=== PATIENT | male | born 1945 | race Hispanic/Latino ===

== ENCOUNTER 2017-10-10 18:05 | Emergency (ER) | payer OTHER ==
[2017-10-10] MEDS ORDERED: DEXAMETHASONE 10 MG/ML VIAL ONE (18:48)
[2017-10-10] MEDS ORDERED: DIPHENHYDRAMINE 50 MG/ML VIAL ONE (18:49)
[2017-10-10] MEDS ORDERED: FAMOTIDINE 20 MG/2 ML VIAL IV ONE (18:49)
--- NOTE | 2017-10-10 20:18 | EDPHYS ---
Physician Documentation [facility] Name: Javier Ren Age: 71 yrs Sex: Male : 1945 Arrival Date: 10/10/2017 Time: 18:08 Bed 25 Private MD: ED Physician Leonel Mitchell HPI: 10/10 18:31 This 71 yrs old Male presents to ER via Ambulatory with complaints of Bee pm1 Sting. 18:31 The patient's rash thought to be caused by insect bites. The rash is located on the pm1 face and left hand. The rash can be described as raised. Onset: The symptoms/episode began/occurred 2 hour(s) ago. Associated signs and symptoms: Pertinent negatives: difficulty breathing, swelling of lips, swelling of throat, swelling of tongue, wheezing, SOB, chest pain, sore throat. Severity of symptoms: in the emergency department the symptoms are unchanged. Treatment given at home: None. The patient has not experienced similar symptoms in the past. Patient was mowing the lawn and was stung by multiple bees in the face, scalp, and left hand. 18:44 Tetanus shot last year per patient. pm1 Historical: - Allergies: 18:12 No Known Allergies; lk1 - PMHx: 18:12 Hypertension; High Cholesterol; COPD; lk1 - PSHx: 18:12 None; lk1 - Immunization history:: Adult Immunizations up to date. - Social history:: Smoking status: Patient uses tobacco products, smokes one pack cigarettes per day. ROS: 18:31 Constitutional: Negative for fever, chills, and weight loss, Eyes: Negative for injury, pm1 pain, redness, and discharge, ENT: Negative for injury, pain, and discharge, Neck: Negative for injury, pain, and swelling, Cardiovascular: Negative for chest pain, palpitations, and edema, Respiratory: Negative for shortness of breath, cough, wheezing, and pleuritic chest pain, Abdomen/GI: Negative for abdominal pain, nausea, vomiting, diarrhea, and constipation, Back: Negative for injury and pain, MS/Extremity: Negative for injury and deformity. 18:31 Neuro: Negative for headache, weakness, numbness, tingling, and seizure. 18:31 Skin: Positive for swelling, of the left hand and face. Exam: 18:31 Constitutional: This is a well developed, well nourished patient who is awake, alert, pm1 and in no acute distress. 18:31 Eyes: Pupils equal round and reactive to light, extra-ocular motions intact. Lids and lashes normal. Conjunctiva and sclera are non-icteric and not injected. Cornea within normal limits. Periorbital areas with no swelling, redness, or edema. ENT: Nares patent. No nasal discharge, no septal abnormalities noted. Tympanic membranes are normal and external auditory canals are clear. Oropharynx with no redness, swelling, or masses, exudates, or evidence of obstruction, uvula midline. Mucous membranes moist. Neck: Trachea midline, no thyromegaly or masses palpated, and no cervical lymphadenopathy. Supple, full range of motion without nuchal rigidity, or vertebral point tenderness. No Meningismus. Chest/axilla: Normal chest wall appearance and motion. Nontender with no deformity. No lesions are appreciated. Cardiovascular: Regular rate and rhythm with a normal S1 and S2. No gallops, murmurs, or rubs. Normal PMI, no JVD. No pulse deficits. Respiratory: Lungs have equal breath sounds bilaterally, clear to auscultation and percussion. No rales, rhonchi or wheezes noted. No increased work of breathing, no retractions or nasal flaring. Abdomen/GI: Soft, non-tender, with normal bowel sounds. No distension or tympany. No guarding or rebound. No evidence of tenderness throughout. Back: No spinal tenderness. No costovertebral tenderness. Full range of motion. 18:31 Head/face: Noted is swelling, that is moderate, of the right cheek, left cheek and left eye. 18:31 Skin: swelling to dorsal aspect of left hand. Two bee stingers removed from left cheek and left hand. 18:31 Neuro: Orientation: is normal, Mentation: is normal, Motor: is normal, moves all fours, Gait: is steady, at a normal pace, without difficulty. Vital Signs: 18:13 BP 132 / 74; Pulse 99; Resp 18; Temp 97.5(TE); Pulse Ox 95% on R/A; Weight 64.41 kg lk1 (R); Height 5 ft. 2 in. (157.48 cm) (R); Pain 6/10; 19:22 BP 121 / 68; Pulse 64; Resp 18; Pulse Ox 100% ; tl3 20:30 BP 126 / 78; Pulse 67; Resp 16; Pulse Ox 98% on R/A; tl3 18:13 Body Mass Index 25.97 (64.41 kg, 157.48 cm) lk1 MDM: 18:16 Patient medically screened. pm1 20:15 Data reviewed: vital signs. Data interpreted: Pulse oximetry: on room air is 100 %. pm1 Interpretation: normal. Counseling: I had a detailed discussion with the patient and/or guardian regarding: the historical points, exam findings, and any diagnostic results supporting the discharge/admit diagnosis, the need for outpatient follow up, to return to the emergency department if symptoms worsen or persist or if there are any questions or concerns that arise at home. 10/10 18:21 Order name: IV Saline Lock; Complete Time: 18:26 pm1 Administered Medications: 18:38 Drug: Benadryl 25 mg Route: IVP; Infused Over: 3 mins; Site: right antecubital; tl3 20:31 Follow up: Response: No adverse reaction tl3 18:38 Drug: Decadron - Dexamethasone 10 mg Route: IVP; Site: right antecubital; tl3 20:31 Follow up: Response: No adverse reaction tl3 18:39 Drug: Pepcid 20 mg Route: IVP; Infused Over: 3 mins; Site: right antecubital; tl3 20:31 Follow up: Response: No adverse reaction tl3 Disposition: 10/11 16:43 Co-signature as Attending Physician, Leonel Mitchell MD available for consultation at ps1 all times. . Disposition: 10/10/17 20:18 Discharged to Home. Impression: Hymenoptera - sting. - Condition is Stable. - Discharge Instructions: Bee, Wasp, or Hornet Sting. - Prescriptions for Benadryl 25 mg Oral Capsule - take 1 capsule by ORAL route every 6 hours As needed; 30 tablet. Pepcid 20 mg Oral Tablet - take 1 tablet by ORAL route every 12 hours for 5 days; 10 tablet. Prednisone 20 mg Oral Tablet - take 3 tablet by ORAL route once daily for 5 days; 15 tablet. - Medication Reconciliation Form, Thank You Letter, Antibiotic Education, Prescription Opioid Use form. - Follow up: Emergency Department; When: As needed; Reason: Worsening of condition. Follow up: Private Physician; When: 2 - 3 days; Reason: Recheck today's complaints, Continuance of care, Re-evaluation by your physician. - Problem is new. - Symptoms have improved. Signatures: Bertha Pope, RN RN lk1 Kike Gonzalez, [facility] TELEVISION RENTAL CLERK pm1 Leonel Mitchell MD MD ps1 Brittany Morley, RN RN tl3
--- NOTE | 2017-10-10 20:18 | ER ---
Nurse's Notes [facility] Name: Javier Ren Age: 71 yrs Sex: Male : 1945 Arrival Date: 10/10/2017 Time: 18:08 Bed 25 Private MD: Diagnosis: Hymenoptera - sting Presentation: 10/10 18:11 Presenting complaint: Patient states: I got stung by some bees around 4pm today, they lk1 were just following me. Transition of care: patient was not received from another setting of care. Onset of symptoms was October 10, 2017 at 16:00. Care prior to arrival: None. 18:11 Method Of Arrival: Ambulatory lk1 18:11 Acuity: FRANCISCO JAVIER 3 lk1 Triage Assessment: 18:12 General: Appears uncomfortable, Behavior is calm, cooperative, appropriate for age. lk1 Pain: Complains of pain in face and left hand Pain currently is 6 out of 10 on a pain scale. EENT: Lid(s) swelling in bilateral eyes. Respiratory: Airway is patent Respiratory effort is even, unlabored, Respiratory pattern is regular, symmetrical. Historical: - Allergies: 18:12 No Known Allergies; lk1 - PMHx: 18:12 Hypertension; High Cholesterol; COPD; lk1 - PSHx: 18:12 None; lk1 - Immunization history:: Adult Immunizations up to date. - Social history:: Smoking status: Patient uses tobacco products, smokes one pack cigarettes per day. Screenin:58 Abuse screen: Denies threats or abuse. Nutritional screening: No deficits noted. tl3 Tuberculosis screening: No symptoms or risk factors identified. Fall Risk None identified. Assessment: 18:20 General: Appears uncomfortable, well groomed, well developed, well nourished, Behavior tl3 is calm, cooperative, appropriate for age. Pain: Pain began 2 hours ago. multiple stings to face and hand, swelling to face and left hand. Neuro: Level of Consciousness is awake, alert, obeys commands, Oriented to person, place, time, situation, Appropriate for age. Cardiovascular: Heart tones S1 S2 present. Respiratory: Airway is patent Trachea deviated to right Breath sounds are clear bilaterally. GI: No signs and/or symptoms were reported involving the gastrointestinal system. : No signs and/or symptoms were reported regarding the genitourinary system. EENT: No signs and/or symptoms were reported regarding the EENT system. 19:22 Reassessment: Patient and/or family updated on plan of care and expected duration. Pain tl3 level reassessed. Patient is alert, oriented x 3, equal unlabored respirations, skin warm/dry/pink. swelling and redness reduced since arrival, pt in NAD. 20:30 Reassessment: Patient and/or family updated on plan of care and expected duration. Pain tl3 level reassessed. Patient is alert, oriented x 3, equal unlabored respirations, skin warm/dry/pink. Vital Signs: 18:13 BP 132 / 74; Pulse 99; Resp 18; Temp 97.5(TE); Pulse Ox 95% on R/A; Weight 64.41 kg lk1 (R); Height 5 ft. 2 in. (157.48 cm) (R); Pain 6/10; 19:22 BP 121 / 68; Pulse 64; Resp 18; Pulse Ox 100% ; tl3 20:30 BP 126 / 78; Pulse 67; Resp 16; Pulse Ox 98% on R/A; tl3 18:13 Body Mass Index 25.97 (64.41 kg, 157.48 cm) lk1 ED Course: 18:08 Patient arrived in ED. as 18:11 Triage completed. lk1 18:15 Arm band placed on right wrist. lk1 18:16 Kike Gonzalez NP is PHCP. pm1 18:16 Leonel Mitchell MD is Attending Physician. pm1 18:17 Brittany Morley, JAGJIT is Primary Nurse. tl3 18:25 Inserted saline lock: in right antecubital area, using aseptic technique. tl3 18:40 Patient has correct armband on for positive identification. Placed in gown. Bed in low tl3 position. Call light in reach. Side rails up X 1. Adult w/ patient. 18:40 No provider procedures requiring assistance completed. tl3 21:00 IV discontinued, intact, bleeding controlled, No redness/swelling at site. Pressure tl3 dressing applied. Administered Medications: 18:38 Drug: Benadryl 25 mg Route: IVP; Infused Over: 3 mins; Site: right antecubital; tl3 20:31 Follow up: Response: No adverse reaction tl3 18:38 Drug: Decadron - Dexamethasone 10 mg Route: IVP; Site: right antecubital; tl3 20:31 Follow up: Response: No adverse reaction tl3 18:39 Drug: Pepcid 20 mg Route: IVP; Infused Over: 3 mins; Site: right antecubital; tl3 20:31 Follow up: Response: No adverse reaction tl3 Outcome: 20:18 Discharge ordered by . pm1 20:41 Patient left the ED. tl3 21:00 Condition: stable tl3 21:00 Instructed on discharge instructions, follow up and referral plans. medication usage, Demonstrated understanding of instructions, follow-up care, medications, Prescriptions given X 2. 23:59 Discharged to home tl3 Signatures: Shea Ren Leah, RN RN lk1 Kike Gonzalez NP [employer] pm1 Brittany Morley RN RN tl3 Corrections: (The following items were deleted from the chart) 18:39 18:38 Benadryl 25 mg IVP in left antecubital over 3 mins tl3 tl3 18:39 18:39 Pepcid 20 mg IVP in right antecubital tl3 tl3 18:40 18:38 Decadron - Dexamethasone 10 mg IVP in left antecubital tl3 tl3
== END 2017-10-10 20:41 | disposition home or self-care (01) ==
LOC: ER 18:05
DX: F17.210 Nicotine dependence, cigarettes, uncomplicated; Y92.9 Unspecified place or not applicable; Y93.H2 Activity, gardening and landscaping; I10 Essential (primary) hypertension; T63.441A Toxic effect of venom of bees, accidental (unintentional), initial encounter
CPT/HCPCS: 96374; 96375; 99283; J1100

== ENCOUNTER 2018-06-20 17:25 | Emergency (ER) | payer OTHER ==
--- OUTSIDE RECORDS SUMMARY | 2018-06-20 17:27 | XMS REPORT ---
:1945 Author Organization [employer] Care Team Providers Name Role Phone Kennedy, Na Provider Role Unavailable Allergies, Adverse Reactions, Alerts Substance Reaction Event Type N.K.D.A. Info Not Available Non Drug Allergy Problems Problem Type Condition Code Onset Dates Condition Status Problem Pure hypercholesterolemia E78.00 Active Problem Bronchitis J40 Active Problem Depression with anxiety F41.8 Active Problem Cigarette nicotine dependence F17.210 Active without complication Assessment Renal insufficiency, mild N28.9 Active Problem Atopic dermatitis L20.9 Active Assessment Cigarette nicotine dependence F17.210 Active without complication Assessment Encounter for tobacco use cessation Z71.6 Active counseling Problem Gastroesophageal reflux disease K21.9 Active without esophagitis Problem Hypothyroidism E03.9 Active Problem Benign essential HTN I10 Active Problem Nonalcoholic fatty liver disease K76.0 Active Problem COPD (chronic obstructive pulmonary J44.9 Active disease) Assessment Depression with anxiety F41.8 Active Assessment Pure hypercholesterolemia E78.00 Active Assessment 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 Assessment COPD (chronic obstructive pulmonary J44.9 Active disease) Problem Nicotine dependence F17.200 Active Assessment Screening for prostate cancer Z12.5 Active Assessment Benign essential HTN I10 Active Problem 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 Assessment Gastroesophageal reflux disease K21.9 Active without esophagitis Assessment Hypothyroidism E03.9 Active Problem Chronic hepatitis C B18.2 Active Medications Medication Code Code Instructions Start End Status Dosage System Date Date Claritin [facility] 15615929955 10 MG Orally Active 1 tablet Once a day Flonase ND 96907836227 50 MCG/ACT Active 1 spray Nasally Once a in each day nostril Trelegy Ellipta ND 52842584801 100-62.5-25 Feb 20, Jun 20, Active 1 puff MCG/INH 2017 2017 Inhalation Once a day Lipitor ND 15138892493 10 MG Orally Active 1 tablet Once a day Incruse Ellipta ND 62703658529 62.5 MCG/INH Feb 20, Inactive 1 puff Inhalation Once 2018 a day Ventolin HFA [facility] 28075930295 108 (90 Base) Active 2 puffs MCG/ACT as needed Inhalation every 6 hrs Levothyroxine [facility] 20682731571 125 MCG Orally October Active 1 tablet Sodium Once a day 2017 on an empty stomach in the morning Wellbutrin XL [facility] 10653837750 150 MG Orally Active 1 tablet Once a day in the morning Lisinopril [facility] 13301056122 10 MG Orally Active 1 tablet Once a day Omeprazole [facility] 96453039359 20 MG Orally Active 1 capsule Once a day Symbicort [facility] 30143099436 160-4.5 MCG/ACT Feb 20, Inactive 2 puffs Inhalation 2017 Twice a day Results No Known Results Summary Purpose [employer]Works Submission
--- OUTSIDE RECORDS SUMMARY | 2018-06-20 17:27 | XMS REPORT ---
:1945 Author Organization [employer] Care Team Providers Name Role Phone Kennedy, Na Provider Role Unavailable Allergies, Adverse Reactions, Alerts Substance Reaction Event Type N.K.D.A. 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 Problem COPD (chronic obstructive pulmonary J44.9 Active disease) Problem Hypothyroidism E03.9 Active Problem Cigarette nicotine dependence F17.210 Active without complication Problem Depression with anxiety F41.8 Active Problem Pure hypercholesterolemia E78.00 Active Problem Benign essential HTN I10 Active Problem Bronchitis J40 Active Assessment 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 Assessment Depression with anxiety F41.8 Active Assessment Cigarette nicotine dependence F17.210 Active without complication Assessment COPD (chronic obstructive pulmonary J44.9 Active disease) Assessment Hypothyroidism E03.9 Active Assessment Pure hypercholesterolemia E78.00 Active Problem Nonalcoholic fatty liver disease K76.0 Active Assessment Benign essential HTN I10 Active Problem Atopic dermatitis L20.9 Active Medications Medication Code Code Instructions Start End Status Dosage System Date Date Levothyroxine [facility] 37173086760 112 MCG Orally Inactive 1 tablet Sodium Once a day on an empty stomach in the morning Claritin [facility] 48585005738 10 MG Orally Active 1 tablet Once a day Levothyroxine ND 21423729849 137 MCG Orally Inactive 1 tablet Sodium Once a day on an empty stomach in the morning Incruse Ellipta ND 75772762109 62.5 MCG/INH Mar 03, Active 1 puff Inhalation Once 2018 a day Omeprazole ND 36283546032 20 MG Orally Active 1 capsule Once a day Flonase ND 59984918800 50 MCG/ACT Active 1 spray Nasally Once a in each day nostril Wellbutrin XL ND 35436484108 150 MG Orally Active 1 tablet Once a day in the morning Lisinopril ND 25016637217 10 MG Orally Active 1 tablet Once a day Levothyroxine [facility] 60054753010 125 MCG Orally October Active 1 tablet Sodium Once a day 2017 on an empty stomach in the morning Ventolin HFA [facility] 84846566149 108 (90 Base) Active 2 puffs MCG/ACT as needed Inhalation every 6 hrs Lipitor [facility] 81316495937 10 MG Orally Active 1 tablet Once a day Symbicort [facility] 65386599314 160-4.5 MCG/ACT Mar 03, Active 2 puffs Inhalation 2017 Twice a day Results No Known Results Summary Purpose eClinicalWorks Submission
[2018-06-20] MEDS ORDERED: ALBUTEROL 2.5 MG/3 ML NEB SOL ONE ×2 (18:24→20:21)
[2018-06-20 18:41] LABS: BUN Blood Urea Nitrogen 11 mg/dL (7-18); Bicarbonate 28 mmol/L (21-32); Glucose Level 103 mg/dL (74-106); NT PRO-BNP 386 pg/mL (<125); Potassium 3.6 mmol/L (3.5-5.1); Sodium Level 139 mmol/L (136-145); Troponin I < 0.02 ng/mL (0.0-0.045)
[2018-06-20 18:42] LABS: Absolute Lymphocytes (CBC) 1.7 K/uL (0.7-4.9); Absolute Monocytes 1.4 K/uL (0.1-1.3); Absolute Neutrophil 4.6 K/uL (1.8-8.0); Basophils % 0.6 % (0-1.3); Eosinophils % 5.1 % (0-4.4); Hematocrit 37.1 % (39.6-49.0); MCH 33.3 pg (27.0-35.0); MCV 97.7 fL (80-100); MPV 9.4 fL (7.6-11.3); Monocytes % 17.4 % (3.3-12.3)
[2018-06-20 19:31] LABS: Blood Morphology Comment NOT SEEN (NOT SEEN); Platelet Estimate ADEQ
--- NOTE | 2018-06-20 19:44 | RAD REPORT ---
EXAM DESCRIPTION: CT - Chest For Pe Angio - 06/20/2018 7:26 pm CLINICAL HISTORY: Cough and shortness of breath since COMPARISON: 06/20/2018 chest x-ray TECHNIQUE: Dynamically enhanced axial 3 mm thick images of the chest were obtained during administra tion of <100> mL Isovue 370 IV contrast. Coronal and oblique reconstruction images were generated and reviewed. Exam utilizes a protocol for optimal evaluation of pulmonary arterial tree. Maximum intensity projections 3D imaging was utilized All CT scans are performed using dose optimization technique as appropriate and may include automated exposure control or mA/KV adjustment according to patient size. FINDINGS: A pulmonary embolus is not seen. A thoracic aortic aneurysm is not noted. Bovine aorta A pleural effusion is not seen. A pericardial effusion is not seen. Mild nonspecific hilar and mediastinal lymphadenopathy A 4 centimeter right upper lobe opacity is present. Mild right lower lobe opacity is seen. Mild tree- in-bud opacities within the lungs IMPRESSION: Negative for a pulmonary embolism. 4 centimeter right upper lobe opacity with mild right lower lobe and bilateral tree-in-bud opacities likely indicate pneumonia. The right upper lobe opacity should be followed until it is clear to help exclude a post obstructive process/underlying mass Mild nonspecific hilar and mediastinal lymphadenopathy
--- NOTE | 2018-06-20 19:44 | RAD REPORT ---
EXAM DESCRIPTION: Yomaira Pa And Lat (2 Views)06/20/2018 6:03 pm CLINICAL HISTORY: Cough COMPARISON: 2007 FINDINGS: A patchy right lung opacities are seen. Interstitial pattern bilaterally is mildly promin ent in lungs. The heart is normal size IMPRESSION: Patchy right lung opacities with mild bilateral interstitial lung opacities consistent with pneumonia
--- NOTE | 2018-06-20 20:14 | ER ---
Nurse's Notes [facility] Name: Javier Ren Age: 72 yrs Sex: Male : 1945 Arrival Date: 06/20/2018 Time: 17:30 Bed 8 Private MD: Deidre Kennedy Diagnosis: Pneumonia due to other specified bacteria Presentation: 06/20 17:32 Presenting complaint: states: he has had a cough since , productive yellow tw2 green mucous a lot, he coughs all night and he feels short of breath. Transition of care: patient was not received from another setting of care. Onset of symptoms was June 20, 2018. Risk Assessment: Do you want to hurt yourself or someone else? Patient reports no desire to harm self or others. Initial Sepsis Screen: Does the patient meet any 2 criteria? No. Patient's initial sepsis screen is negative. Does the patient have a suspected source of infection? No. Patient's initial sepsis screen is negative. Care prior to arrival: None. 17:32 Method Of Arrival: Ambulatory tw2 17:32 Acuity: FRANCISCO JAVIER 3 tw2 Historical: - Allergies: 17:35 No Known Allergies; tw2 - Home Meds: 17:35 "blood pressure med, cholestrol and asthma " [Active]; tw2 - PMHx: 17:35 COPD; High Cholesterol; Hypertension; tw2 - PSHx: 17:35 None; tw2 - Immunization history:: Adult Immunizations. - Social history:: Smoking status: Patient uses tobacco products, smokes one pack cigarettes per day. - Ebola Screening: : Patient denies travel to an Ebola-affected area in the 21 days before illness onset. Screenin:19 Abuse screen: Denies threats or abuse. Denies injuries from another. Nutritional hb screening: No deficits noted. Tuberculosis screening: No symptoms or risk factors identified. Fall Risk None identified. Assessment: 18:15 General: Appears in no apparent distress. Behavior is calm, cooperative. Pain: Denies hb pain. Neuro: Level of Consciousness is awake, alert, obeys commands, Oriented to person, place, time, situation. Cardiovascular: Capillary refill < 3 seconds Patient's skin is warm and dry. Rhythm is regular. Respiratory: Airway is patent Trachea midline Respiratory effort is even, unlabored, Respiratory pattern is regular, symmetrical, Breath sounds are diminished Breath sounds with rhonchi bilaterally. GI: No signs and/or symptoms were reported involving the gastrointestinal system. : No signs and/or symptoms were reported regarding the genitourinary system. EENT: No signs and/or symptoms were reported regarding the EENT system. Derm: Skin is intact, is healthy with good turgor, Skin is pink, warm \\T\\ dry. Musculoskeletal: No signs and/or symptoms reported regarding the musculoskeletal system. 19:03 Reassessment: Patient and/or family updated on plan of care and expected duration. Pain bb level reassessed. Respiratory: Airway is patent Respiratory effort is even, unlabored, Respiratory pattern is tachypnea Breath sounds with wheezes bilaterally. IV site intact no erythema or edema noted, family at bedside. 20:21 Reassessment: No changes from previously documented assessment. pt is A\\T\\O x 4, awaiting bb completion of neb tx prior to discharge, family at bedside. 20:30 Reassessment: pt is A\\T\\O x 4, resp still tachypneic but roger breath sounds clear. Pt and bb spouse verbalized understanding of and agree to plan of care instructed on need to return to ED immediately if symptoms worsen or change, discharge instructions given pt ambulated with steady gait to exit accompanied by spouse. Vital Signs: 17:33 BP 162 / 82; Pulse 70; Resp 18; Temp 98.2(O); Pulse Ox 97% on R/A; Pain 0/10; tw2 18:15 BP 143 / 63; Pulse 59; Resp 17; Pulse Ox 100% on 8% Nebulizer Mask; Pain 0/10; hb 19:05 BP 148 / 71; Pulse 74; Resp 24 S; Temp 97.8(O); Pulse Ox 93% on R/A; bb 20:21 BP 171 / 78; Pulse 79; Resp 24 S; Temp 97.7(TE); Pulse Ox 100% on 8% Nebulizer Mask; bb ED Course: 17:30 Patient arrived in ED. sb2 17:30 Deidre Kennedy MD is Private Physician. sb2 17:33 Triage completed. tw2 17:34 Arm band placed on. tw2 17:39 [facility]. cp 17:39 Chirag Price MD is Attending Physician. cp 17:51 EKG done, by timber management technician. reviewed by Cortez RODRIGUEZ. dt2 17:59 X-ray completed. Patient tolerated procedure well. Patient moved back from radiology. ml 18:10 Initial lab(s) drawn, by me, sent to lab. Flu and/or RSV swab sent to lab. Inserted dh3 saline lock: 20 gauge in right antecubital area, using aseptic technique. Blood collected. 18:19 Clarita Mauro, RN is Primary Nurse. hb 18:21 Patient has correct armband on for positive identification. Placed in gown. Bed in low hb position. Call light in reach. Side rails up X2. 20:33 No provider procedures requiring assistance completed. IV discontinued, intact, bb bleeding controlled, No redness/swelling at site. Pressure dressing applied. Administered Medications: 18:22 Drug: Albuterol 2.5 mg Route: Inhalation; hb 20:20 Drug: LevaQUIN 750 mg Route: PO; bb 20:34 Follow up: Response: No adverse reaction bb 20:20 Drug: Albuterol 2.5 mg Route: Inhalation; bb 20:34 Follow up: Response: No adverse reaction bb 20:20 Drug: AtroVENT Aerosol 0.5 mg Route: Inhalation; bb 20:34 Follow up: Response: No adverse reaction bb Outcome: 20:14 Discharge ordered by MD. cp 20:33 Discharged to home ambulatory, with family. bb 20:33 Condition: stable 20:33 Discharge instructions given to patient, family, Instructed on discharge instructions, follow up and referral plans. medication usage, Demonstrated understanding of instructions, follow-up care, medications, Prescriptions given X 3. 20:35 Patient left the ED. bb Signatures: Angie Spencer RN RN bb Lopez, Melissa Cortez Barboza PA PA cp Clarita Mauro, RN JAGJIT Ewa Sam RN RN tw2 Jil Alexis 3 Anna Rodriguez 2 Mary Perdomo dt2 Corrections: (The following items were deleted from the chart) 19:08 19:03 Respiratory: Airway is patent Respiratory effort is even, unlabored, Respiratory bb pattern is regular, Breath sounds with wheezes bilaterally. IV site intact no erythema or edema noted, family at bedside bb
--- NOTE | 2018-06-20 20:15 | EDPHYS ---
Physician Documentation [facility] Name: Javier Ren Age: 72 yrs Sex: Male : 1945 Arrival Date: 06/20/2018 Time: 17:30 Bed 8 Private MD: Deidre Kennedy ED Physician Chirag Price HPI: 06/20 17:50 This 72 yrs old Male presents to ER via Ambulatory with complaints of cp Productive Cough. 17:50 The patient or guardian reports cough, that is constant, with productive sputum, that cp is green, that is yellow. Onset: The symptoms/episode began/occurred last week. Severity of symptoms: in the emergency department the symptoms are unchanged, despite home interventions. Associated signs and symptoms: Pertinent positives: rhinorrhea, shortness of breath, Pertinent negatives: chest pain, diarrhea, fever. Historical: - Allergies: 17:35 No Known Allergies; tw2 - Home Meds: 17:35 "blood pressure med, cholestrol and asthma " [Active]; tw2 - PMHx: 17:35 COPD; High Cholesterol; Hypertension; tw2 - PSHx: 17:35 None; tw2 - Immunization history:: Adult Immunizations. - Social history:: Smoking status: Patient uses tobacco products, smokes one pack cigarettes per day. - Ebola Screening: : Patient denies travel to an Ebola-affected area in the 21 days before illness onset. ROS: 17:57 Eyes: Negative for injury, pain, redness, and discharge. cp 17:57 Constitutional: Negative for body aches, chills, fever, poor PO intake. 17:57 ENT: Negative for drainage from ear(s), ear pain, sore throat, difficulty swallowing, difficulty handling secretions. 17:57 Cardiovascular: Negative for chest pain, edema, orthopnea, palpitations. 17:57 Respiratory: Positive for cough, with yellow sputum, shortness of breath, on exertion. Negative for hemoptysis, wheezing. 17:57 Abdomen/GI: Negative for abdominal pain, vomiting, diarrhea, constipation, anorexia. 17:57 Back: Negative for pain at rest, pain with movement, radiated pain. 17:57 Skin: Negative for cellulitis, rash. 17:57 Neuro: Negative for altered mental status, headache, loss of consciousness, syncope, near syncope, weakness. 17:57 All other systems are negative. Exam: 17:55 ECG was reviewed by the Attending Physician. cp 18:00 Constitutional: The patient appears in no acute distress, alert, awake, cp non-diaphoretic, non-toxic, well developed, well nourished. 18:00 Head/Face: Normocephalic, atraumatic. Eyes: Pupils equal round and reactive to light, cp extra-ocular motions intact. Lids and lashes normal. Conjunctiva and sclera are non-icteric and not injected. Cornea within normal limits. Periorbital areas with no swelling, redness, or edema. ENT: Nares patent. No nasal discharge, no septal abnormalities noted. Tympanic membranes are normal and external auditory canals are clear. Oropharynx with no redness, swelling, or masses, exudates, or evidence of obstruction, uvula midline. Mucous membranes moist. Neck: Trachea midline, no thyromegaly or masses palpated, and no cervical lymphadenopathy. Supple, full range of motion without nuchal rigidity, or vertebral point tenderness. No Meningismus. 18:00 Chest/axilla: Inspection: normal, Palpation: is normal, no crepitus, no tenderness. 18:00 Cardiovascular: Rate: normal, Rhythm: regular, Pulses: Pulses are 2+ in right radial artery and left radial artery. Edema: is not appreciated, JVD: is not appreciated. 18:00 Respiratory: the patient does not display signs of respiratory distress, Respirations: normal, no use of accessory muscles, no retractions, no splinting, no tachypnea, Breath sounds: bronchial sounds, that are mild, are heard diffusely, decreased breath sounds, are not appreciated, stridor, is not appreciated. 18:00 Abdomen/GI: Inspection: abdomen appears normal, Bowel sounds: active, all quadrants, Palpation: abdomen is soft and non-tender, in all quadrants. 18:00 Back: pain, is absent, ROM is normal. 18:00 Skin: cellulitis, is not appreciated, no rash present. 18:00 Neuro: Orientation: to person, place \\T\\ time. Mentation: is normal, Cerebellar function: is grossly normal, Motor: moves all fours, strength is normal, Sensation: is normal. Vital Signs: 17:33 BP 162 / 82; Pulse 70; Resp 18; Temp 98.2(O); Pulse Ox 97% on R/A; Pain 0/10; tw2 18:15 BP 143 / 63; Pulse 59; Resp 17; Pulse Ox 100% on 8% Nebulizer Mask; Pain 0/10; hb 19:05 BP 148 / 71; Pulse 74; Resp 24 S; Temp 97.8(O); Pulse Ox 93% on R/A; bb 20:21 BP 171 / 78; Pulse 79; Resp 24 S; Temp 97.7(TE); Pulse Ox 100% on 8% Nebulizer Mask; bb MDM: 17:39 Patient medically screened. cp 18:00 Differential Diagnosis: Bronchitis Influenza Pneumonia. cp 19:55 Data reviewed: vital signs, nurses notes, lab test result(s), EKG, radiologic studies, cp CT scan, plain films. 19:55 Test interpretation: by ED physician or midlevel provider: ECG, plain radiologic cp studies. Refusal of service: The patient/guardian displays adequate decision making capability and despite a detailed discussion of alternatives, benefits, risks, and consequences refuses: Admission to the hospital for further work-up and treatment. 20:12 ED course: VSS. Discussed results of labs, EKG and radiology studies. Patient would cp like to be discharged to home and outpatient treatment with oral antibiotics for pneumonia. 06/20 17:50 Order name: CBC with Diff 06/20 17:50 Order name: BMP 06/20 17:50 Order name: BNP 06/20 17:50 Order name: Troponin I 06/20 17:50 Order name: Influenza Screen (a \\T\\ B) 06/20 18:41 Order name: Influenza Screen (A ; Complete Time: 18:57 EDMS 06/20 17:50 Order name: XRAY Chest Pa And Lat (2 Views) 06/20 18:42 Order name: Basic Metabolic Panel; Complete Time: 18:57 EDMS 06/20 18:42 Order name: Troponin I; Complete Time: 18:57 EDMS 06/20 18:42 Order name: NT PRO-BNP; Complete Time: 18:57 EDMS 06/20 18:44 Order name: CBC with Automated Diff; Complete Time: 19:49 EDMS 06/20 19:49 Interpretation: Normal except: RBC 3.80; HGB 12.6; HCT 37.1; MN% 17.4; EOSINOPHIL % 5.1. 06/20 19:32 Order name: Manual Differential; Complete Time: 19:49 EDMS 06/20 19:49 Interpretation: Normal except: BANDS [F] 3; MONO 15. cp 06/20 20:22 Order name: Urine Dipstick--Ancillary (enter results) fc 06/20 20:31 Order name: Urine Dipstick-Ancillary EDMS 06/20 17:50 Order name: EKG; Complete Time: 17:51 cp 06/20 17:50 Order name: EKG - Nurse/Tech; Complete Time: 18:16 cp 06/20 17:50 Order name: Urine Dipstick-Ancillary (obtain specimen); Complete Time: 20:20 cp 06/20 18:59 Order name: CT Chest For PE Angio cp 06/20 19:45 Order name: CT; Complete Time: 19:49 EDMS 06/20 19:46 Order name: RAD; Complete Time: 19:49 EDMS EC:55 Rate is 62 beats/min. Rhythm is regular. GA interval is normal. QRS interval is normal. cp QT interval is normal. Interpreted by me. Reviewed by me. Administered Medications: 18:22 Drug: Albuterol 2.5 mg Route: Inhalation; hb 20:20 Drug: LevaQUIN 750 mg Route: PO; bb 20:34 Follow up: Response: No adverse reaction bb 20:20 Drug: Albuterol 2.5 mg Route: Inhalation; bb 20:34 Follow up: Response: No adverse reaction bb 20:20 Drug: AtroVENT Aerosol 0.5 mg Route: Inhalation; bb 20:34 Follow up: Response: No adverse reaction bb Disposition: 06/21 07:44 Co-signature as Attending Physician, Chirag Price MD. rn Disposition: 06/20/18 20:14 Discharged to Home. Impression: Pneumonia due to other specified bacteria. - Condition is Stable. - Discharge Instructions: Community-Acquired Pneumonia, Adult. - Prescriptions for Levaquin 750 mg Oral Tablet - take 1 tablet by ORAL route once daily for 7 days start evening of 06-21-2018; 6 tablet. Albuterol Sulfate 2.5 mg /3 mL (0.083 %) Inhalation Solution for Nebulization - inhale 1 unit by NEBULIZATION route every 8 hours As needed; 1 box. Tessalon Perles 100 mg Oral Capsule - take 1 capsule by ORAL route every 8 hours As needed; 15 capsule. - Medication Reconciliation Form, Thank You Letter, Antibiotic Education, Prescription Opioid Use form. - Follow up: Private Physician; When: 2 - 3 days; Reason: Recheck today's complaints. - Problem is new. - Symptoms have improved. Signatures: Dispatcher [employer] EDAngie Betancourt RN RN Chirag Malloy MD MD rn Page, Corey, PA PA cp Clarita Mauro RN RN Ewa Sam RN RN tw2 Corrections: (The following items were deleted from the chart) 06/20 20:35 20:14 06/20/2018 20:14 Discharged to Home. Impression: Pneumonia due to other specified bb bacteria. Condition is Stable. Forms are Medication Reconciliation Form, Thank You Letter, Antibiotic Education, Prescription Opioid Use. Follow up: Private Physician; When: 2 - 3 days; Reason: Recheck today's complaints. Problem is new. Symptoms have improved. cp
[2018-06-20] MEDS ORDERED: IPRATROPIUM BROM 0.5MG/2.5ML ONE (20:21)
[2018-06-20] MEDS ORDERED: levoFLOXacin 750 MG TAB ONE (20:21)
[2018-06-20 20:30] LABS: Urine Blood TRACE (NEG); Urine Glucose NEGATIVE (NEG); Urine Protein NEGATIVE (NEG)
--- NOTE | 2018-06-20 22:18 | EKG ---
Test Date: 2018-06-20 Test Time: 17:46:19 Tv Production Assistant: JOAN MEASUREMENT RESULTS: Intervals: Rate: 62 NC: 144 QRSD: 92 QT: 392 QTc: 397 [place]: P: 58 NC: 144 QRS: -2 T: 38 INTERPRETIVE STATEMENTS: Normal sinus rhythm Possible Left atrial enlargement Septal infarct, age undetermined Abnormal ECG No previous ECG available for comparison Electronically Signed On 06-20-18 22:17:54 [employer] by Francisco Ko
== END 2018-06-20 20:35 | disposition home or self-care (01) ==
LOC: ER 17:25
DX: J15.8 Pneumonia due to other specified bacteria (principal); R94.31 Abnormal electrocardiogram [ECG] [EKG]; E78.00 Pure hypercholesterolemia, unspecified; I10 Essential (primary) hypertension; J44.9 Chronic obstructive pulmonary disease, unspecified; F17.210 Nicotine dependence, cigarettes, uncomplicated; Z79.899 Other long term (current) drug therapy
CPT/HCPCS: 36415; 71046; 71275; 80048; 81003; 83880; 84484; 85025; 87804 ×2; 93005; 99284; Q9967

== ENCOUNTER 2019-02-08 07:19 | Day surgery (SDC) | payer OTHER ==
--- OUTSIDE RECORDS SUMMARY | 2019-02-08 07:21 | XMS REPORT ---
[...] End Status Dosage System Date Date Levothyroxine [facility] 56202014758 112 MCG Orally Inactive 1 tablet Sodium Once a day on an empty stomach in the morning Claritin [facility] 02195383787 10 MG Orally Active 1 tablet Once a day Levothyroxine ND 23962034220 137 MCG Orally Inactive 1 tablet Sodium Once a day on an empty stomach in the morning Incruse Ellipta ND 52768716495 62.5 MCG/INH Mar 03, Active 1 puff Inhalation Once 2018 a day Omeprazole ND 68240767573 20 MG Orally Active 1 capsule Once a day Flonase ND 08363576844 50 MCG/ACT Active 1 spray Nasally Once a in each day nostril Wellbutrin XL ND 66318202178 150 MG Orally Active 1 tablet Once a day in the morning Lisinopril ND 60159452051 10 MG Orally Active 1 tablet Once a day Levothyroxine [facility] 71386249323 125 MCG Orally October Active 1 tablet Sodium Once a day 2017 on an empty stomach in the morning Ventolin HFA [facility] 32001559669 108 (90 Base) Active 2 puffs MCG/ACT as needed Inhalation every 6 hrs Lipitor [facility] 70355104899 10 MG Orally Active 1 tablet Once a day Symbicort [facility] 23050892440 160-4.5 MCG/ACT Mar 03, Active 2 puffs Inhalation 2017 Twice a day Results No Known Results Summary Purpose eClinicalWorks Submission
--- OUTSIDE RECORDS SUMMARY | 2019-02-08 07:22 | XMS REPORT ---
[...] End Status Dosage System Date Date Claritin [facility] 88740410476 10 MG Orally Active 1 tablet Once a day Flonase ND 98672722209 50 MCG/ACT Active 1 spray Nasally Once a in each day nostril Trelegy Ellipta ND 38711293096 100-62.5-25 Feb 20, Jun 20, Active 1 puff MCG/INH 2017 2017 Inhalation Once a day Lipitor ND 54496452388 10 MG Orally Active 1 tablet Once a day Incruse Ellipta ND 29099104544 62.5 MCG/INH Feb 20, Inactive 1 puff Inhalation Once 2018 a day Ventolin HFA [facility] 71982328726 108 (90 Base) Active 2 puffs MCG/ACT as needed Inhalation every 6 hrs Levothyroxine [facility] 04278863304 125 MCG Orally October Active 1 tablet Sodium Once a day 2017 on an empty stomach in the morning Wellbutrin XL [facility] 13469925367 150 MG Orally Active 1 tablet Once a day in the morning Lisinopril [facility] 57020984104 10 MG Orally Active 1 tablet Once a day Omeprazole [facility] 52306188957 20 MG Orally Active 1 capsule Once a day Symbicort [facility] 69412815510 160-4.5 MCG/ACT Feb 20, Inactive 2 puffs Inhalation 2017 Twice a day Results No Known Results Summary Purpose eClinicalWorks Submission
--- OUTSIDE RECORDS SUMMARY | 2019-02-08 07:22 | XMS REPORT ---
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
--- OUTSIDE RECORDS SUMMARY | 2019-02-08 07:22 | XMS REPORT ---
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 Assessment Hospital discharge follow-up Z09 Active Problem Chronic hepatitis C B18.2 Active Medications Medication Code Code Instructions Start End Status Dosage System Date Date Hectorlebernice Perea [facility] 57315946035 100-62.5-25 Jun 27, Active 1 puff MCG/INH 2017 Inhalation Once a day Levothyroxine [facility] 13974421239 125 MCG Orally Paige Active 1 tablet Sodium Once a day 2017 on an empty stomach in the morning Lisinopril ND 60444974822 10 MG Orally Active 1 tablet Once a day Omeprazole ND 26575966075 20 MG Orally Active 1 capsule Once a day Flonase [facility] 11549199286 50 MCG/ACT Active 1 spray in Nasally Once a each day nostril Claritin [facility] 34744041263 10 MG Orally Active 1 tablet Once a day Wellbutrin XL ND 10912965218 150 MG Orally Active 1 tablet Once a day in the morning Lipitor [facility] 28919407461 10 MG Orally Active 1 tablet Once a day Ventolin HFA [facility] 87804203933 108 (90 Base) Active 2 puffs as MCG/ACT needed Inhalation every 6 hrs Results Name Result Date Reference Range Unit Abnormality Flag Chest Pa And Lat (2 Views) Summary Purpose eClinicalWorks Submission
--- OUTSIDE RECORDS SUMMARY | 2019-02-08 07:22 | XMS REPORT ---
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 Assessment Alkaline phosphatase elevation R74.8 Active Assessment Hypothyroidism E03.9 Active Problem Chronic hepatitis C B18.2 Active Medications Medication Code Code Instructions Start End Status Dosage System Date Date Flonase [facility] 67027015713 50 MCG/ACT Active 1 spray in Nasally Once a each day nostril Lisinopril ND 69104182588 10 MG Orally Active 1 tablet Once a day Wellbutrin XL ND 24671019499 150 MG Orally Active 1 tablet Once a day in the morning Claritin [facility] 03191901318 10 MG Orally Active 1 tablet Once a day Omeprazole ND 76667539521 20 MG Orally Active 1 capsule Once a day Lipitor ND 24563644050 10 MG Orally Active 1 tablet Once a day Levothyroxine [facility] 96622739929 125 MCG Orally Active 1 tablet Sodium Once a day on an empty stomach in the morning Ventolin HFA [facility] 65535959579 108 (90 Base) Active 2 puffs as MCG/ACT needed Inhalation every 6 hrs Mary Perea [facility] 82253243160 100-62.5-25 Jun 27, Active 1 puff MCG/INH 2018 Inhalation Once a day Results Name Result Date Reference Range Unit Abnormality Flag Protein Electo w/M Demetrius Serum ----INTERPRETATION REPORT [id number] ----Abnormal Protein Band 1 REPORT [id number] ----Gamma Globulins 1.0 [id number] 0.8-1.7 g/dL ----Beta 2 Globulin 0.4 [id number] 0.2-0.5 g/dL ----Beta 1 Globulin 0.5 [id number] 0.4-0.6 g/dL ----Total Protein 7.5 [id number] 6.1-8.1 g/dL ----Albumin, (SPE) 4.4 [id number] 3.8-4.8 g/dL ----Pelzk-0-Hhswduhvn 0.3 [id number] 0.2-0.3 g/dL ----Uphux-2-Htkqprreu 0.9 [id number] 0.5-0.9 g/dL Summary Purpose eClinicalWorks Submission
[2019-02-08] MEDS ORDERED: Ringers Lactate 1,000 ML IV ONE (07:56)
[2019-02-08] MEDS ORDERED: LIDOCAINE 1% MPF 5 ML VIAL ONE (08:39)
[2019-02-08] MEDS ORDERED: PROPOFOL 200 MG/20 ML VIAL IV ONE (08:39)
--- NOTE | 2019-02-08 08:50 | ENDO RPT ---
[address], [address] COLONOSCOPY PROCEDURE REPORT EXAM DATE: 02/08/2019 PATIENT NAME: Javier Garcia MR #: [id number] BIRTHDATE: 1945 ATTENDING: Riley Peters DR STATUS: outpatient INDUSTRIAL ORDER CLERK: Kirk Marques RN, Heather Winchester, and Stephanie Aguilar RN INDICATIONS: The patient is a 73 yr old Male here for a colonoscopy due to colon cancer screening PROCEDURE PERFORMED: Colonoscopy with biopsy MEDICATIONS: Per Anesthesia. ESTIMATED BLOOD LOSS: None CONSENT: The patient understands the risks and benefits of the procedure and understands that these risks include, but are not limited to: sedation, allergic reaction, infection, perforation and/or bleeding. Alternative means of evaluation and treatment include, among others: physical exam, x-rays, and/or surgical intervention. The patient elects to proceed with this endoscopic procedure. DESCRIPTION OF PROCEDURE: During intra-op preparation period all mechanical medical equipment was checked for proper function. Hand hygiene and appropriate measures for infection prevention was taken. Procedure, possible complications, alternatives including, but not limited to possibility of bleeding, perforation, tear, infection, sepsis, need for surgery, need for blood transfusion, were explained to the patient. After the risks, benefits and alternatives of the procedure were thoroughly explained, Informed consent was verified, confirmed and timeout was successfully executed by the treatment team. The patient was placed in the left lateral position. A digital rectal exam was performed and revealed internal hemorrhoids and A digital rectal exam was performed and revealed external hemorrhoids. After appropriate level of anesthesia, the scope was passed. The EC-[id number] ([id number]) endoscope was introduced through the anus and advanced to the cecum, which was identified by both the appendix and ileocecal valve. The quality of the prep was fair. The instrument was then slowly withdrawn as the colon was fully examined. Scope withdrawal time was 9 minutes. COLON FINDINGS: Mild diverticulosis was noted throughout the entire examined colon. No bleeding was noted from the diverticulosis. A few small, superficial arteriovenous malformations measuring 1mm in size were found in the rectum. Retroflexed views revealed no abnormalities. The scope was then completely withdrawn from the patient and the procedure terminated. ADVERSE EVENTS: There were no complications. IMPRESSIONS: 1. Mild diverticulosis was noted throughout the entire examined colon 2. Few arteriovenous malformations measuring 1mm in size were found in the rectum 3. Normal colonoscopy otherwise 4. External hemorrhoids 5. Internal hemorrhoids RECOMMENDATIONS: 1. avoid NSAIDS for 2 weeks 2. await biopsy results 3. follow-up: office 2 week(s) 4. Monitor for any evidence of rectal bleeding. 5. low fiber / diverticular diet 6. increase dietary water 7. hemorrhoidal hygiene 8. yearly hemoccult starting in 4 years RECALL: Return in 5 year(s) for Colonoscopy, pending biopsy results. Pending Biopsy Results Riley Peters DR eSigned: Riley Peters DR 02/08/2019 8:49 AM cc: CPT CODES: ICD9 CODES: PATIENT NAME: Javier Garcia MR#: [id number]
== END 2019-02-08 09:27 | disposition home or self-care (01) ==
LOC: OR 07:19
PROVIDERS: ATTEND Surgery
PROC: 0DBP8ZX Excision of Rectum, Via Natural or Artificial Opening Endoscopic, Diagnostic (ICD-10-PCS; principal; 2019-02-08 08:30)
DX: Z12.11 Encounter for screening for malignant neoplasm of colon (principal); K62.89 Other specified diseases of anus and rectum; K57.30 Diverticulosis of large intestine without perforation or abscess without bleeding; K64.8 Other hemorrhoids; K64.4 Residual hemorrhoidal skin tags; E03.9 Hypothyroidism, unspecified; I10 Essential (primary) hypertension; J44.9 Chronic obstructive pulmonary disease, unspecified; K76.0 Fatty (change of) liver, not elsewhere classified; F41.8 Other specified anxiety disorders; M15.8 Other polyosteoarthritis; F17.200 Nicotine dependence, unspecified, uncomplicated; Z79.899 Other long term (current) drug therapy; Z86.19 Personal history of other infectious and parasitic diseases
CPT/HCPCS: 45380; 88305; J2704